=== PATIENT | male | born 1975 | race African-American/Black ===

== ENCOUNTER 2024-06-23 11:38 | Emergency (ER) | payer SELFPAY ==
[~2024-06-23] VITALS: Ht 157.5 cm; Wt 68.0 kg
[2024-06-23 12:09] VITALS: O2SAT 98
[2024-06-23 14:29] LABS: BASOPHILS % 0.3 % (0.0-2.0); EOSINOPHILS % 2.6 % (0.0-5.0); HEMATOCRIT. 47.3 % (42.0-52.0); HEMOGLOBIN. 16.2 g/dL (14.0-18.0); MEAN CORPUSCULAR HEMOGLOBIN 32.8 pg (28.0-32.0); MEAN CORPUSCULAR HGB CONC 34.2 g/dL (31.0-37.0); MEAN PLATELET VOLUME 10.3 fl (7.4-10.4); MONOCYTES % 8.5 % (2.0-8.0); NEUTROPHILS % 59.6 % (40.0-76.0); PLATELET 216 x1000/uL (130-400); RED BLOOD CELL COUNT 4.93 mill/uL (4.7-6.1); RED CELL DISTRIBUTION WIDTH 13.9 % (11.6-14.6); WHITE BLOOD COUNT 7.9 x1000/uL (4.5-11.0)
[2024-06-23 14:39] LABS: PROTHROMBIN TIME 11.4 sec (9.6-11.0)
[2024-06-23 14:42] LABS: CHLORIDE 102 mEq/L (98-107); POTASSIUM 3.7 mEq/L (3.5-5.1); SODIUM 139 mEq/L (136-145)
[2024-06-23 14:43] LABS: CARBON DIOXIDE 31 mEq/L (21-32)
[2024-06-23 14:44] LABS: CALCIUM 9.7 mg/dL (8.7-10.4); GLUCOSE 97 mg/dL (70-105); UREA NITROGEN BLOOD 9 mg/dL (9-23)
[2024-06-23 14:45] LABS: TROPONIN I HIGH SENSITIVITY 10 ng/L (3.0-53)
[2024-06-23 14:46] LABS: ALANINE AMINOTRANSFERASE 103 IU/L (10-49); ALBUMIN 4.7 g/dL (3.2-4.8); ASPARTATE AMINOTRANSFERASE 56 IU/L (<34); BILIRUBIN DIRECT 0.1 mg/dL (<=3.0); BILIRUBIN TOTAL 0.6 mg/dL (0.1-1.0); PROTEIN TOTAL 7.8 g/dL (6.0-8.3)
[2024-06-23 17:05] LABS: TROPONIN I HIGH SENSITIVITY 9 ng/L (3.0-53)
[2024-06-23 17:40] VITALS: BP 141/94; PULSE 87; RESP 16; TEMP 36.83628; O2SAT 98
== END 2024-06-23 17:24 | disposition home or self-care (01) ==
LOC: ER 11:47
DX: R00.2 Palpitations (principal); R10.9 Unspecified abdominal pain
CPT/HCPCS: 36415; 71045; 80048; 80076; 84484; 85025; 93005; 99285